=== PATIENT | female | born 1985 | race Caucasian/White ===

== ENCOUNTER 2017-05-14 12:31 | Emergency (ER) | payer MEDICAID ==
[2017-05-14 12:36] VITALS: BMI 21.9
[2017-05-14 12:53] VITALS: RESP 18
[2017-05-14] MEDS ORDERED: Piperacillin/Tazobact 3.375 GM in Sodium Chloride 100 ML IVPB STA (13:22)
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
[2017-05-14 13:46] LABS: BASO % 0.5 % (0.0-2.0); EOS # 0.1 K/uL (0.0-0.7); EOS % 1.2 % (0.0-4.0); HEMATOCRIT 41.3 % (34.0-47.0); LYMPH # 1.5 K/uL (1.0-4.3); LYMPH % 17.2 % (20.0-40.0); MEAN CELL VOLUME 81.5 fL (81.0-99.0); MEAN CORPUSCULAR HEMOGLOBIN 26.5 pg (27.0-31.0); MEAN CORPUSCULAR HGB CONC 32.6 g/dL (33.0-37.0); MONO # 0.5 K/uL (0.0-0.8); MONO % 5.8 % (0.0-10.0); NRBC % 0.1 % (0.0-2.0); RED CELL DISTRIBUTION WIDTH 14.1 % (11.5-14.5); WHITE BLOOD COUNT 8.6 K/uL (4.8-10.8)
[2017-05-14 13:51] LABS: URINE BILIRUBIN NEGATIVE (NEGATIVE); URINE BLOOD 3+ (NEGATIVE); URINE COLOR Yellow (YELLOW); URINE GLUCOSE (UA) NORMAL (Normal); URINE KETONE NEGATIVE (NEGATIVE); URINE PROTEIN 1+ mg/dL (NEGATIVE); URINE UROBILINOGEN NORMAL mg/dL (0.2-1.0)
[2017-05-14] MEDS ORDERED: Piperacill/Tazo 3.375gm in Dex 3.375 GM/50 ML BAG IVPB STA (13:51)
[2017-05-14 14:05] LABS: BLOOD UREA NITROGEN 7 mg/dL (7-17); CALCIUM 8.8 mg/dl (8.6-10.4); CARBON DIOXIDE 31 mmol/L (22-30); CHLORIDE 100 mmol/L (98-107); GFR AFRICAN-AMERICAN > 60; GLUCOSE,RANDOM 93 mg/dL (65-105); POTASSIUM 3.9 mmol/L (3.6-5.2); SODIUM 135 mmol/L (132-148)
[2017-05-14 14:13] LABS: RBC URINE 15 /hpf (0-3); URINE BACTERIA MANY (<OCC); URINE LEUKOCYTE ESTERASE 1+ Leu/uL (Negative); WBC URINE 8 /hpf (0-5)
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
[2017-05-14 16:55] VITALS: BP 92/57; PULSE 71; TEMP 98
[2017-05-14 17:15] VITALS: O2SAT 99
== END 2017-05-14 17:45 | disposition home or self-care (01) ==
LOC: C.ER 12:31
DX: S01.511A Laceration without foreign body of lip, initial encounter (principal); L08.9 Local infection of the skin and subcutaneous tissue, unspecified; Y04.0XXA Assault by unarmed brawl or fight, initial encounter; K08.89 Other specified disorders of teeth and supporting structures; N39.0 Urinary tract infection, site not specified
CPT/HCPCS: 70480; 80048; 81001; 85025; 87086; 87181; 96365; 99285; J2543

== ENCOUNTER 2017-05-16 16:08 | Emergency (ER) | payer MEDICAID ==
[2017-05-16 16:55] VITALS: BP 107/65; PULSE 63; RESP 20; TEMP 97.8; O2SAT 99; BMI 21.4
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
== END 2017-05-16 17:16 | disposition home or self-care (01) ==
LOC: C.ER 16:08
DX: N39.0 Urinary tract infection, site not specified (principal); K08.89 Other specified disorders of teeth and supporting structures; S01.511A Laceration without foreign body of lip, initial encounter; X58.XXXA Exposure to other specified factors, initial encounter; L08.9 Local infection of the skin and subcutaneous tissue, unspecified

== ENCOUNTER 2017-07-25 11:14 | Inpatient (IN) | payer MEDICAID ==
[2017-07-25 11:14] VITALS: BMI 21.9
--- NOTE | 2017-07-25 11:53 | C.PDOC ---
History Of Present Illness 31 yo female come in request detox from heroin. last dose was early today. Pt denies depression, suicidal or homocidal ideation. Pt denies nay other active physical complaints. Ambulate to Ed for evaluation, not in any apparent distress. Time Seen by Provider: 07/25/17 11:28 Chief Complaint (Nursing): Substance Abuse History Per: Patient Past Medical History Reviewed: Historical Data, Nursing Documentation, Vital Signs Vital Signs: Last Vital Signs Temp 97.6 F 07/25/17 11:17 Pulse 55 L 07/25/17 11:17 Resp 20 07/25/17 11:17 BP 97/59 L 07/25/17 11:17 Pulse Ox 96 07/25/17 11:53 Surgical History: Cholecystectomy Family History: States: Unknown Family Hx - Social History Hx Tobacco Use: Yes Hx Alcohol Use: Yes Hx Substance Use: Yes - Immunization History Hx Tetanus Toxoid Vaccination: No Hx Influenza Vaccination: No Hx Pneumococcal Vaccination: No Review Of Systems Except As Marked, All Systems Reviewed And Found Negative. Constitutional: Negative for: Fever, Chills Eyes: Negative for: Vision Change ENT: Negative for: Ear Discharge, Nose Discharge, Nose Congestion, Throat Pain Cardiovascular: Negative for: Chest Pain, Palpitations, Edema, Light Headedness Respiratory: Negative for: Cough, Shortness of Breath, Wheezing Gastrointestinal: Negative for: Nausea, Vomiting, Abdominal Pain Genitourinary: Negative for: Dysuria, Incontinence Musculoskeletal: Negative for: Neck Pain, Back Pain Skin: Negative for: Rash Neurological: Negative for: Weakness, Numbness, Altered Mental Status, Headache , Dizziness Physical Exam - Physical Exam Appears: Well, No Acute Distress Skin: Normal Color, Warm, Dry, No Rash, No Ecchymosis Head: Atraumatic, Normacephalic Eye(s): bilateral: PERRL Nose: No Flaring Oral Mucosa: Moist, No Drooling Tongue: Normal Appearing Lips: Normal Appearing Throat: No Erythema, No Drooling Neck: Trachea Midline, No Midline Cervical Tenderness, No Paracervical Tenderness, No Step Off Deformity, Supple Chest: Symmetrical Cardiovascular: Rhythm Regular, No Murmur Respiratory: No Decreased Breath Sounds, No Accessory Muscle Use, No Stridor, No Wheezing Gastrointestinal/Abdominal: Soft, No Tenderness, No Distention, No Guarding Back: No CVA Tenderness Extremity: Normal ROM, No Deformity, No Swelling Neurological/Psych: Oriented x3, Normal Speech, Normal Motor, Normal Sensation, Normal Reflexes ED Course And Treatment - Laboratory Results Result Diagrams: 07/25/17 12:04 07/25/17 12:04 Lab Interpretation: Normal O2 Sat by Pulse Oximetry: 96 Pulse Ox Interpretation: Normal Progress Note: Diagnostics review, no acute abnormalities. Pt is medically cleared for psych evaluation. Pt was seen by PES and admission arranged to detox s/o . On re-eavl, pt remained hemodynamicaly stable, appropriate. Admission arranged. Disposition - Disposition Disposition: HOSPITALIZED Disposition Time: 13:04 Condition: STABLE Forms: [facility] (Yakut) - Clinical Impression Clinical Impression: Opioid dependence
[2017-07-25 12:08] LABS: BASO # 0.1 K/uL (0.0-0.2); BASO % 1.3 % (0.0-2.0); EOS # 0.2 K/uL (0.0-0.7); HEMOGLOBIN 12.6 g/dL (11.0-16.0); LYMPH % 34.9 % (20.0-40.0); MEAN CELL VOLUME 81.9 fL (81.0-99.0); MEAN CORPUSCULAR HEMOGLOBIN 26.7 pg (27.0-31.0); MEAN CORPUSCULAR HGB CONC 32.7 g/dL (33.0-37.0); MEAN PLATELET VOLUME 7.9 fL (7.2-11.7); MONO # 0.5 K/uL (0.0-0.8); MONO % 5.8 % (0.0-10.0); NEUT # 4.7 K/uL (1.8-7.0); RBC 4.71 Mil/uL (3.80-5.20); RED CELL DISTRIBUTION WIDTH 14.3 % (11.5-14.5); WHITE BLOOD COUNT 8.4 K/uL (4.8-10.8)
[2017-07-25 12:16] LABS: HCG,QUALITATIVE URINE NEGATIVE (NEGATIVE)
[2017-07-25 12:20] LABS: SQUAMOUS EPITHIAL 8 /hpf (0-5); URINE BACTERIA RARE (<OCC); URINE BILIRUBIN NEGATIVE (NEGATIVE); URINE BLOOD NEGATIVE (NEGATIVE); URINE CLARITY Hazy (Clear); URINE COLOR Yellow (YELLOW); URINE GLUCOSE (UA) NORMAL (Normal); URINE LEUKOCYTE ESTERASE 1+ Leu/uL (Negative); URINE NITRATE NEGATIVE (NEGATIVE); URINE PROTEIN NEGATIVE (NEGATIVE)
[2017-07-25 12:23] LABS: ALB/GLOB RATIO 1.3 (1.0-2.1); ALBUMIN 4.3 g/dL (3.5-5.0); ALT/SGPT 25 U/L (9-52); AST/SGOT 27 U/L (14-36); BLOOD UREA NITROGEN 13 mg/dL (7-17); CALCIUM 8.8 mg/dl (8.6-10.4); GFR AFRICAN-AMERICAN > 60; GFR NON-AFRICAN AMERICAN > 60
[2017-07-25 12:34] LABS: BARBITURATES, UR NEGATIVE (NEGATIVE); BENZODIAZEPINES, UR NEGATIVE (NEGATIVE); PHENCYCLIDINE, UR NEGATIVE (NEGATIVE)
[2017-07-25 12:51] LABS: OPIATES, UR POSITIVE (NEGATIVE)
[2017-07-25] MEDS ORDERED: Aluminum Hydroxide/Magnesium Hydroxide Susp (30 mL) PO PRN (13:22)
--- NOTE | 2017-07-25 15:39 | PCM.BM ---
<Rayna Ibanez - Last Filed: 07/25/17 15:37> Treatment Plan Problems - Problems identified on initial assessmt potential for opiates withdrawal Date Initiated: 07/25/17 Time Initiated: 15:38 Assessment reference: NA Status: Active anxiety Date Initiated: 07/25/17 Time Initiated: 15:38 Assessment reference: NA Status: Active - Milieu Protocol Maintain good personal hygiene: daily Encourage regular showers, daily Remind patient to perform daily oral care, daily Assist patient to perform ADL's Conduct patient checks and document Observation sheet: Q15 minutes Maintain personal safety: every shift Educate patient to report safety concerns to staff, every shift Monitor environment for contraband/sharps Medication safety: Monitor for expected outcome, potential side effects: other, Assess barriers to learning: other, Assess readiness for medication education: other <Walt Whitehead - Last Filed: 07/26/17 12:36> - Diagnosis (1) Opioid dependence Status: Acute Interventions: 07/26/17 12:36 * Assess 7x/week regarding severity of withdrawal * Educate regarding risks, benefits, side effects and alternatives of medications * Use Motivational Interviewing for abstinence * Use CBT for relapse prevention * Medication management for withdrawal symptoms * Encourage medication assisted treatment *
[2017-07-26] MEDS ORDERED: Buprenorphine Hydrochloride 2 mg SL ONE ×2 (07:04→08:30)
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
[2017-07-27] MEDS ORDERED: Buprenorphine Hydrochloride 2 mg SL SCH (10:00)
[2017-07-27] MEDS ORDERED: Buprenorphine Hydrochloride 2 mg SL ONE (10:59)
--- NOTE | 2017-07-27 13:40 | PCM.PYCHPN ---
Psychiatric Progress Note - Psychiatric Progress Note Patient seen today, length of contact: 15 minutes Patient Chief Complaint: "I didnt sleep well" Problems Identified/Issues Discussed: The pt is seen, chart reviewed, case discussed with staff. The pt complained of not being able to sleep despite Trazodone given. Patient agreed to increase dose of Trazodone and add Seroquel to help with sleeping. Symptoms improving and patient needs more time to stabilize. After care discussed, support and psychoeducation given. Patient plans on going home with an intenseive outpatient program and wants NA. Patient tried rehab one time and states she does not want to try this again Medication Change: Yes (Trazodone 100 mg, Add Seroquel, detox changes daily) Medical Record Reviewed: Yes Mental Status Examination - Cognitive Function Orientation: Person, Place, Situation, Time Memory: Intact Attention: WNL Concentration: WNL Association: WNL Fund of Knowledge: [facility] Decription of patient's judgement and insights: fair - Mood Mood: Depressed, Anxious - Affect Affect: Constricted - Speech Speech: Appropriate - Language Language: Word Retrieval - Formal Thought Process Formal Thought Process: No Impairment - Suicidal Ideation Suicidal Ideation: No - Homicidal Ideation Homicidal Ideation: No Goal/Treatment Plan - Goal/Treatment Plan Need for Continued Stay: Remain at risks for inpatient hospitalization, Discharge may exacerbated symptoms Progress Toward Problem(s) and Goals/Treatment Plan: Subutex taper As needed medications All risks, benefits and alternatives of the meds discussed, and the pt agreed and understood. Attend groups and activities Supportive therapy and psychoeducation ME for abstinence CBT for relapse prevention Encourage MAT Refer to rehab or IOP, and self-help groups Smoking cessation with ME Nicotine patch Estimated Date of D/C: 07/30/17 - Smoking Cessation Smoking Cessation Initiated: Yes
[2017-07-28] MEDS: Buprenorphine Hydrochloride 2 mg SL SCH (09:48)
[2017-07-28] MEDS ORDERED: Bisacodyl 5mg EC Tab PO ONE (11:00)
--- NOTE | 2017-07-28 14:17 | PCM.PYCHPN ---
Psychiatric Progress Note - Psychiatric Progress Note Patient seen today, length of contact: 15 minutes Patient Chief Complaint: "I am still not sleeping well" Problems Identified/Issues Discussed: The pt is seen, chart reviewed, case discussed with staff. The pt is compliant with medications and reports no side-effects. Symptoms improving and patient needs more time to stabilize. After care discussed, support and psychoeducation given. Patient is not sleeping well and medications will be adjusted to help with sleep. She stated she vomited one time overnight but does not feel nausea currently. Patient also complains of not having a bowel movement since 07/23 so stool softeners will be added and she was recommended to increase her water intake. Medication Change: Yes (Malox 30 ml, Trazodone 100 mg, Add Seroquel, detox changes daily) Medical Record Reviewed: Yes Mental Status Examination - Cognitive Function Orientation: Person, Place, Situation, Time Memory: Intact Attention: WNL Concentration: WNL Association: WNL Fund of Knowledge: WN Decription of patient's judgement and insights: fair - Mood Mood: Depressed, Anxious - Affect Affect: Constricted - Speech Speech: Appropriate - Language Language: Word Retrieval - Formal Thought Process Formal Thought Process: No Impairment - Suicidal Ideation Suicidal Ideation: No - Homicidal Ideation Homicidal Ideation: No Goal/Treatment Plan - Goal/Treatment Plan Need for Continued Stay: Remain at risks for inpatient hospitalization, Discharge may exacerbated symptoms Progress Toward Problem(s) and Goals/Treatment Plan: Subutex taper As needed medications All risks, benefits and alternatives of the meds discussed, and the pt agreed and understood. Attend groups and activities Supportive therapy and psychoeducation [place] for abstinence CBT for relapse prevention Encourage MAT Refer to rehab or IOP, and self-help groups Smoking cessation with NC Nicotine patch Estimated Date of D/C: 07/30/17 - Smoking Cessation Smoking Cessation Initiated: Yes
[2017-07-29] MEDS: Buprenorphine Hydrochloride 2 mg SL SCH (09:56)
[2017-07-29 11:20] VITALS: BP 100/60; PULSE 75; RESP 20; TEMP 98; O2SAT 97
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
== END 2017-07-29 11:37 | disposition home or self-care (01) | DRG 745 ==
LOC: C.ER 11:14 → C.7D 13:06
PROVIDERS: ADMIT Psychiatry & Neurology Psychiatry; ATTEND Psychiatry & Neurology Psychiatry
PROC: HZ2ZZZZ Detoxification Services for Substance Abuse Treatment (ICD-10-PCS; principal; 2017-07-25)
PROC: HZ52ZZZ Individual Psychotherapy for Substance Abuse Treatment, Cognitive-Behavioral (ICD-10-PCS; 2017-07-25)
PROC: HZ42ZZZ Group Counseling for Substance Abuse Treatment, Cognitive-Behavioral (ICD-10-PCS; 2017-07-25)
PROC: HZ59ZZZ Individual Psychotherapy for Substance Abuse Treatment, Supportive (ICD-10-PCS; 2017-07-25)
PROC: HZ56ZZZ Individual Psychotherapy for Substance Abuse Treatment, Psychoeducation (ICD-10-PCS; 2017-07-25)
PROC: HZ46ZZZ Group Counseling for Substance Abuse Treatment, Psychoeducation (ICD-10-PCS; 2017-07-25)
DX: F11.23 Opioid dependence with withdrawal (principal); F14.20 Cocaine dependence, uncomplicated; F12.90 Cannabis use, unspecified, uncomplicated; F17.210 Nicotine dependence, cigarettes, uncomplicated; F43.10 Post-traumatic stress disorder, unspecified; Z62.810 Personal history of physical and sexual abuse in childhood; F32.9 Major depressive disorder, single episode, unspecified; F41.9 Anxiety disorder, unspecified; Z90.49 Acquired absence of other specified parts of digestive tract

== ENCOUNTER 2018-02-16 18:46 | Emergency (ER) | payer MEDICAID ==
[2018-02-16 18:46] VITALS: BMI 21.9
[2018-02-16 18:55] VITALS: BP 119/79; PULSE 76; RESP 18; TEMP 98.4; O2SAT 98
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
--- NOTE | 2018-02-17 09:26 | RAD ---
Date of service: 02/16/2018 PROCEDURE: Right Knee Radiographs. HISTORY: knee pain, s/p fall COMPARISON: None. FINDINGS: BONES: No acute fracture or destructive bony lesion identified. JOINTS: Normal. No osteoarthritis. JOINT EFFUSION: None. OTHER FINDINGS: None. IMPRESSION: Unremarkable radiographs of the right knee.
== END 2018-02-16 20:44 | disposition home or self-care (01) ==
LOC: C.ER 18:46
DX: S83.91XA Sprain of unspecified site of right knee, initial encounter (principal); Y04.2XXA Assault by strike against or bumped into by another person, initial encounter; Z72.0 Tobacco use

== ENCOUNTER 2018-08-13 13:54 | Emergency (ER) | payer MEDICAID ==
[2018-08-13 13:54] VITALS: BMI 21.9
[2018-08-13 14:14] VITALS: BP 96/58; PULSE 58; RESP 20; TEMP 98.6; O2SAT 97
--- NOTE | 2018-08-13 14:31 | C.PDOC ---
History Of Present Illness Patient is a 32 year old female who presents to the ED requesting detox from heroin and cocaine, which she last used today. Patient also states that she has not had her period in over a month and would like a test to be done. Patient denies any pain, suicidal or homicidal ideation, hallucinations, chest pain, or shortness of breath. Time Seen by Provider: 08/13/18 14:20 Chief Complaint (Nursing): Substance Abuse History Per: Patient History/Exam Limitations: no limitations Suicide/Self Injury Attempted (Context): None Modifying Factor(s): Cocaine, Other (Heroin ) Associated Symptoms: denies: Suicidal Thoughts, Suicidal Plan Additional History Per: Patient Past Medical History Reviewed: Historical Data, Nursing Documentation, Vital Signs Vital Signs: Last Vital Signs Temp 98.6 F 08/13/18 14:11 Pulse 58 L 08/13/18 14:11 Resp 20 08/13/18 14:11 BP 96/58 L 08/13/18 14:11 Pulse Ox 97 08/13/18 14:11 - Medical History PMH: Denies: Diabetes, Hepatitis, HIV, HTN, Chronic Kidney Disease, Seizures, Sexually Transmitted Disease Surgical History: Cholecystectomy - [facility] Procedures DETOXIFICATION SERVICES FOR SUBSTANCE ABUSE TREATMENT (07/25/17) GROUP DAMAGE ASSESSOR FOR SUBSTANCE ABUSE TREATMENT, PSYCHOEDUCATION (07/25/17) GROUP DAMAGE ASSESSOR FOR SUBSTANCE ABUSE, COGNITIVE BEHAVIORAL (07/25/17) INDIV PSYCHOTHERAPY FOR SUBSTANCE ABUSE TREATMENT, SUPPORT (07/25/17) INDIV PSYCHOTHERAPY FOR SUBSTANCE ABUSE, COGNITIV BEHAVIORAL (07/25/17) INDIV PSYCHOTHERAPY FOR SUBSTANCE ABUSE, PSYCHOEDUCATION (07/25/17) Family History: States: Unknown Family Hx - Social History Hx Tobacco Use: Yes Hx Alcohol Use: Yes Hx Substance Use: Yes - Immunization History Hx Tetanus Toxoid Vaccination: No Hx Influenza Vaccination: No Hx Pneumococcal Vaccination: No Review Of Systems Cardiovascular: Negative for: Chest Pain Respiratory: Negative for: Shortness of Breath Psych: Negative for: Suicidal ideation, Other (homicidal ideation, hallucinations) Physical Exam - Physical Exam Appears: Non-toxic, No Acute Distress, Unkempt Skin: Warm, Dry, No Rash Head: Atraumatic, Normacephalic Eye(s): bilateral: Normal Inspection, EOMI Chest: Symmetrical Cardiovascular: Rhythm Regular, No Murmur Respiratory: Normal Breath Sounds, No Rales, No Rhonchi, No Wheezing Extremity: Bilateral: Normal ROM Neurological/Psych: Oriented x3, Normal Speech Gait: Steady ED Course And Treatment O2 Sat by Pulse Oximetry: 97 (on RA) Pulse Ox Interpretation: Normal Medical Decision Making Medical Decision Making: Plan: POC Urine Preg test negative Contacted crisis workers who stated there were no female detox beds available Patient does not qualify for detox beds because she was recently discharged 2 weeks ago Patient given list of addiction centers to contact Disposition Counseled Patient/Family Regarding: Diagnosis, Need For Followup - Disposition Disposition: HOME/ ROUTINE Disposition Time: 14:30 Condition: STABLE Additional Instructions: Please see list of referral information for addiction Instructions: Drug Abuse and Drug Addiction (DC) - Clinical Impression Clinical Impression: Drug abuse, Negative test - PA / FIRE SUPPRESSION CAPTAIN / Resident Statement MD/DO has examined the patient and agrees with the treatment plan. - Scribe Statement The provider has reviewed the documentation as recorded by the Alex Pruett All medical record entries made by the Scribe were at my direction and personally dictated by me. I have reviewed the chart and agree that the record accurately reflects my personal performance of the history, physical exam, med ica decision making, and the department course for this patient. I have also personally directed, reviewed, and agree with the discharge instructions and disposition.
== END 2018-08-13 14:57 | disposition home or self-care (01) ==
LOC: C.ER 13:54
DX: F19.10 Other psychoactive substance abuse, uncomplicated (principal); Z32.02 Encounter for pregnancy test, result negative; Z72.0 Tobacco use